=== PATIENT | female | born 1985 | race African-American/Black ===

== ENCOUNTER 2021-03-20 21:59 | Emergency (ER) | payer OTHER ==
[~2021-03-20] VITALS: Ht 170.2 cm; Wt 120.0 kg
[~2021-03-20 21:59] MED LIST: UNK ANTIBIOTIC
[2021-03-21] MEDS ORDERED: ONDANSETRON HCL 4MG/2ML INJ IV STA (03:22)
[2021-03-21] MEDS ORDERED: SODIUM CHLORIDE 0.9% 1,000 ML IV ONE (03:30)
[2021-03-21] MEDS ORDERED: LORAZEPAM 0.5MG TABLET PO ONE (03:30)
[2021-03-21 03:52] LABS: BASOPHILS % 0.6 % (0.0-2.0); EOSINOPHILS % 1.6 % (0.0-5.0); HEMATOCRIT. 30.5 % (36.0-48.0); LYMPHOCYTES % 16.4 % (20.0-50.0); MEAN CORPUSCULAR HEMOGLOBIN 27.6 pg (28.0-32.0); MEAN CORPUSCULAR VOLUME 84.1 fL (81.0-99.0); MEAN PLATELET VOLUME 9.4 fl (7.4-10.4); MONOCYTES % 6.2 % (2.0-8.0); NEUTROPHILS % 75.2 % (40.0-76.0); PLATELET 242 x1000/uL (130-400); RED BLOOD CELL COUNT 3.63 mill/uL (4.2-5.4); RED CELL DISTRIBUTION WIDTH 14.5 % (11.6-14.6)
[2021-03-21 03:54] LABS: CHLORIDE 107 mEq/L (98-107)
[2021-03-21 03:55] LABS: HCG SCREEN POSITIVE; INR 0.9; PROTHROMBIN TIME 10.2 sec (9.6-11.0)
[2021-03-21 04:21] LABS: CLARITY URINE CLOUDY (CLEAR); COLOR URINE DARK YELLOW (YELLOW); KETONES URINE 4+ (NEGATIVE); LEUKOCYTE ESTERASE URINE NEGATIVE (NEGATIVE); NITRITE URINE NEGATIVE (NEGATIVE); OCCULT BLOOD URINE NEGATIVE (NEGATIVE); PH URINE 5.5 (4.5-8.0); PROTEIN URINE TRACE (NEGATIVE); SPECIFIC GRAVITY URINE 1.027 (1.005-1.030)
[2021-03-21] MEDS ORDERED: CEPH500C2 MT (05:39)
[2021-03-21 05:45] VITALS: BP 120/60
== END 2021-03-21 05:50 | disposition home or self-care (01) ==
LOC: ER 21:59
DX: O21.8 Other vomiting complicating pregnancy (principal); Z3A.20 20 weeks gestation of pregnancy; F12.10 Cannabis abuse, uncomplicated
CPT/HCPCS: 36415; 80053; 81003; 83690; 84484; 84703; 85025; 85610; 96361; 96374; 99283; J2405; J7030

== ENCOUNTER 2021-04-07 09:55 | Inpatient (IN) | payer OTHER ==
[~2021-04-07] VITALS: Ht 172.7 cm; Wt 117.5 kg
[~2021-04-07 09:55] MED LIST changes: +CEPH500C2 MT
[2021-04-07 10:52] LABS: HEMATOCRIT. 33.7 % (36.0-48.0); HEMOGLOBIN. 11.1 g/dL (12.0-16.0); MEAN CORPUSCULAR HEMOGLOBIN 27.3 pg (28.0-32.0); MEAN CORPUSCULAR VOLUME 82.8 fL (81.0-99.0); MEAN PLATELET VOLUME 9.9 fl (7.4-10.4); PLATELET 292 x1000/uL (130-400); RED BLOOD CELL COUNT 4.07 mill/uL (4.2-5.4); RED CELL DISTRIBUTION WIDTH 15.1 % (11.6-14.6)
[2021-04-07 11:02] LABS: CHLORIDE 105 mEq/L (98-107)
[2021-04-07 11:25] LABS: B-HCG QUANTITATIVE 11505 mIU/mL (<3)
[2021-04-07 12:15] LABS: PLATELET ESTIMATE NORMAL
[2021-04-07 12:30] LABS: BG BASE EXCESS -1.3 mmol/L (-2.0-2.0); BG CARBOXYHEMOGLOBIN 0.3 % (0.5-1.5); BG DEOXYHEMOGLOBIN 3.9 % (0.0-5.0); BG FRACTION INSPIRED OXYGEN 28; BG HCO3 ACT 19.3 mmol/L (22.0-26.0); BG METHEMOGLOBIN 0.3 % (0.0-1.5); BG OXYGEN SATURATION 96.1 % (92.0-98.5); BG OXYHEMOGLOBIN 95.5 % (94.0-97.0); BG PCO2 21.9 mmHg (35.0-45.0); BG PH 7.563 (7.350-7.450); BG PO2 76.5 mmHg (75.0-100.0); BG SAMPLE SITE RIGHT RADIAL; BG TOTAL HEMOGLOBIN 11.6 g/dL (12.0-18.0); BG VENT MODE NASAL CANNULA
[2021-04-07] MEDS ORDERED: CEFTRIAXONE 1 G PREMIX 50 ML IV ONE (12:30)
[2021-04-07] MEDS ORDERED: AZITHROMYCIN 500MG/250ML 250 ML IV ONE (12:30)
[2021-04-07] MEDS: ONDANSETRON HCL 4MG/2ML INJ IV PRN ×2 (14:48→19:54)
[2021-04-07] MEDS ORDERED: CEFTRIAXONE 1,000 MG in DEXTROSE 5% WATER 50 ML IV SCH (15:30)
[2021-04-07] MEDS ORDERED: ACETAMINOPHEN 325MG TABLET PO PRN (15:30)
[2021-04-07 15:51] VITALS: BP 127/69
[2021-04-07 20:00] VITALS: BP 100/51
[2021-04-08] VITALS: BP 110/55
[2021-04-08 04:00] VITALS: BP 99/54
[2021-04-08 05:56] LABS: CHLORIDE 105 mEq/L (98-107)
[2021-04-08] MEDS: ONDANSETRON HCL 4MG/2ML INJ IV PRN ×3 (06:12→20:14)
[2021-04-08 06:23] LABS: HEMATOCRIT. 30.4 % (36.0-48.0); HEMOGLOBIN. 10.1 g/dL (12.0-16.0); MEAN CORPUSCULAR HEMOGLOBIN 27.4 pg (28.0-32.0); MEAN CORPUSCULAR VOLUME 82.4 fL (81.0-99.0); MEAN PLATELET VOLUME 9.7 fl (7.4-10.4); PLATELET 196 x1000/uL (130-400); RED BLOOD CELL COUNT 3.69 mill/uL (4.2-5.4); RED CELL DISTRIBUTION WIDTH 14.9 % (11.6-14.6)
[2021-04-08 08:00] VITALS: BP 100/57
[2021-04-08] MEDS ORDERED: POTASSIUM CHLORIDE 20MEQ TABLET SR PO SCH (09:00)
[2021-04-08] MEDS: DOCUSATE SODIUM 100MG CAPSULE PO PRN (09:53)
[2021-04-08] MEDS: CEFTRIAXONE 1,000 MG in DEXTROSE 5% WATER 50 ML IV SCH (09:54)
[2021-04-08 12:00] VITALS: BP 109/53
[2021-04-08 16:00] VITALS: BP 104/55
[2021-04-08 18:51] LABS: PLATELET ESTIMATE NORMAL
[2021-04-08 20:00] VITALS: BP 102/63
[2021-04-09] VITALS: BP 110/68
[2021-04-09 04:00] VITALS: BP 99/67
[2021-04-09 05:50] VITALS: BP 99/67
[2021-04-09 08:00] VITALS: BP 104/70
[2021-04-09] MEDS: CEFTRIAXONE 1,000 MG in DEXTROSE 5% WATER 50 ML IV SCH (09:20)
[2021-04-09] MEDS: DOCUSATE SODIUM 100MG CAPSULE PO PRN (09:20)
[2021-04-09 12:00] VITALS: BP 109/69
[2021-04-09 12:59] VITALS: BP 103/69
== END 2021-04-09 13:40 | disposition home or self-care (01) | DRG 566 ==
LOC: ER 09:55 → MICUSO 12:20 → 7WST 15:45
PROVIDERS: ADMIT Internal Medicine; ATTEND Internal Medicine
DX: O98.512 Other viral diseases complicating pregnancy, second trimester (principal); A41.89 Other specified sepsis; J12.82 Pneumonia due to coronavirus disease 2019; O98.812 Other maternal infectious and parasitic diseases complicating pregnancy, second trimester; O99.512 Diseases of the respiratory system complicating pregnancy, second trimester; U07.1 COVID-19; O99.012 Anemia complicating pregnancy, second trimester; O26.892 Other specified pregnancy related conditions, second trimester; R74.01 Elevation of levels of liver transaminase levels; Z3A.26 26 weeks gestation of pregnancy; Z79.899 Other long term (current) drug therapy
CPT/HCPCS: 36415; 36600; 71045; 76830; 76856; 80048; 80053; 82375; 82728; 82805; 82962; 83605; 83615; 84145; 84484; 84702; 85025; 86140; 93005; 99291; J0456; J0696; J2405; J7060; U0003; U0005

== ENCOUNTER 2021-08-15 23:06 | Inpatient (IN) | payer MEDICAID, OTHER ==
[~2021-08-15] VITALS: Ht 170.2 cm; Wt 119.8 kg
[2021-08-16] MEDS ORDERED: ONDANSETRON HCL 4MG/2ML INJ IV STA (02:23)
[2021-08-16] MEDS ORDERED: KETOROLAC 30MG/ML VIAL IV STA (02:23)
[2021-08-16] MEDS ORDERED: SODIUM CHLORIDE 0.9% 1,000 ML IV ONE (02:30)
[2021-08-16 02:50] LABS: BASOPHILS % 1.1 % (0.0-2.0); EOSINOPHILS % 2.3 % (0.0-5.0); HEMATOCRIT. 36.5 % (36.0-48.0); HEMOGLOBIN. 11.6 g/dL (12.0-16.0); LYMPHOCYTES % 20.9 % (20.0-50.0); MEAN CORPUSCULAR HEMOGLOBIN 24.9 pg (28.0-32.0); MEAN PLATELET VOLUME 9.3 fl (7.4-10.4); MONOCYTES % 11.3 % (2.0-8.0); NEUTROPHILS % 64.4 % (40.0-76.0); PLATELET 338 x1000/uL (130-400); RED BLOOD CELL COUNT 4.68 mill/uL (4.2-5.4); RED CELL DISTRIBUTION WIDTH 16.9 % (11.6-14.6)
[2021-08-16 02:58] LABS: CHLORIDE 107 mEq/L (98-107)
[2021-08-16 03:03] LABS: HCG SCREEN NEGATIVE
[2021-08-16] MEDS ORDERED: CEFTRIAXONE 1 G PREMIX 50 ML IV ONE (04:45)
[2021-08-16] MEDS: DEXT 5%/0.45% NACL 1000ML 1,000 ML IV SCH ×2 (09:00→21:52)
[2021-08-16] MEDS ORDERED: ONDANSETRON HCL 4MG/2ML INJ IV PRN (09:00)
[2021-08-16] MEDS ORDERED: KETOROLAC 30MG/ML VIAL IV PRN (09:00)
[2021-08-16] MEDS ORDERED: ACETAMINOPHEN 325MG TABLET PO PRN (09:00)
[2021-08-16 09:55] LABS: CLARITY URINE CLOUDY (CLEAR); COLOR URINE DARK YELLOW (YELLOW); KETONES URINE TRACE (NEGATIVE); LEUKOCYTE ESTERASE URINE TRACE (NEGATIVE); NITRITE URINE POSITIVE (NEGATIVE); OCCULT BLOOD URINE NEGATIVE (NEGATIVE); PH URINE 6.5 (4.5-8.0); PROTEIN URINE 1+ (NEGATIVE); SPECIFIC GRAVITY URINE 1.031 (1.005-1.030)
[2021-08-16] MEDS: AMLODIPINE 10MG TABLET PO SCH (10:14)
[2021-08-16] MEDS: PANTOPRAZOLE SODIUM 40 MG/VIAL IV SCH (10:14)
[2021-08-16] MEDS ORDERED: IBUP-2030 MT (11:14)
[2021-08-16] MEDS ORDERED: HYDR-4001 MT (11:14)
[2021-08-16 11:19] VITALS: BP 144/90
[2021-08-16 12:00] VITALS: BP 144/89
[2021-08-16 16:00] VITALS: BP 104/71
[2021-08-16] MEDS ORDERED: CEFTRIAXONE 1 G PREMIX 50 ML IV SCH (18:15)
[2021-08-16 20:00] VITALS: BP 130/83
[2021-08-16] MEDS ORDERED: MORPHINE SULFATE 2 MG/ML CPJ (NOT FOR IM USE) IV NR (20:30)
[2021-08-16 21:44] LABS: *BENZODIAZEPINES SCREEN URINE NEGATIVE (NEGATIVE); *COCAINE SCREEN URINE NEGATIVE (NEGATIVE)
[2021-08-16 21:45] LABS: CANNABINOID URINE SCREEN NEGATIVE (NEGATIVE); METHADONE URINE SCREEN NEGATIVE (NEGATIVE); OPIATES URINE SCREEN NEGATIVE (NEGATIVE); PHENCYCLIDINE URINE SCREEN NEGATIVE (NEGATIVE)
[2021-08-16 21:47] LABS: *BARBITURATES SCREEN URINE NEGATIVE (NEGATIVE)
[2021-08-16 21:48] LABS: *AMPHETAMINES SCREEN URINE NEGATIVE (NEGATIVE)
[2021-08-17] VITALS (7 sets, daily range): BP systolic 115–142; BP diastolic 76–90
[2021-08-17 07:00] LABS: CHLORIDE 107 mEq/L (98-107)
[2021-08-17 07:05] LABS: BASOPHILS % 1.2 % (0.0-2.0); EOSINOPHILS % 5.6 % (0.0-5.0); HEMATOCRIT. 35.9 % (36.0-48.0); HEMOGLOBIN. 11.7 g/dL (12.0-16.0); LYMPHOCYTES % 37.5 % (20.0-50.0); MEAN CORPUSCULAR HEMOGLOBIN 25.5 pg (28.0-32.0); MEAN CORPUSCULAR VOLUME 78.4 fL (81.0-99.0); MEAN PLATELET VOLUME 9.3 fl (7.4-10.4); MONOCYTES % 8.4 % (2.0-8.0); NEUTROPHILS % 47.3 % (40.0-76.0); PLATELET 294 x1000/uL (130-400); RED BLOOD CELL COUNT 4.58 mill/uL (4.2-5.4)
[2021-08-17] MEDS: AMLODIPINE 10MG TABLET PO SCH (08:18)
[2021-08-17] MEDS ORDERED: CEFTRIAXONE 1,000 MG in DEXTROSE 5% WATER 50 ML IV SCH (09:00)
[2021-08-17] MEDS: PANTOPRAZOLE SODIUM 40 MG/VIAL IV SCH (09:29)
[2021-08-17] MEDS: DEXT 5%/0.45% NACL 1000ML 1,000 ML IV SCH (19:01)
== END 2021-08-17 23:38 | disposition home or self-care (01) | DRG 561 ==
LOC: ER 23:06 → 5WST 08-16 05:42
PROVIDERS: ADMIT Internal Medicine; ATTEND Internal Medicine
DX: O99.63 Diseases of the digestive system complicating the puerperium (principal); K85.10 Biliary acute pancreatitis without necrosis or infection; E44.1 Mild protein-calorie malnutrition; J45.909 Unspecified asthma, uncomplicated; K80.20 Calculus of gallbladder without cholecystitis without obstruction; R74.8 Abnormal levels of other serum enzymes; O86.20 Urinary tract infection following delivery, unspecified; O99.53 Diseases of the respiratory system complicating the puerperium; O99.215 Obesity complicating the puerperium; O25.3 Malnutrition in the puerperium; O90.89 Other complications of the puerperium, not elsewhere classified; R74.01 Elevation of levels of liver transaminase levels; K82.8 Other specified diseases of gallbladder; N39.0 Urinary tract infection, site not specified; Z98.891 History of uterine scar from previous surgery; Z79.2 Long term (current) use of antibiotics; Z79.899 Other long term (current) drug therapy
CPT/HCPCS: 36415; 74176; 74181; 76705; 80053; 80305; 81003; 83605; 84703; 85025; 93005; 99285; C9113; J0696; J1885; J2270; J2405; J7030; J7060

== ENCOUNTER 2022-12-13 22:24 | Emergency (ER) | payer MEDICAID, OTHER ==
[~2022-12-13] VITALS: Ht 170.2 cm; Wt 117.0 kg
[2022-12-13 22:59] VITALS: TEMP 98.4; O2SAT 100
[2022-12-14 00:30] VITALS: BP 138/92; PULSE 64; RESP 18
[2022-12-14] MEDS ORDERED: IBUPROFEN 600MG TABLET PO ONE (00:30)
[2022-12-14] MEDS ORDERED: TETRACAINE 0.5% OPHTH DROPS 4ML BOTHEYE ONE (00:30)
[2022-12-14] MEDS ORDERED: ERYT1OIN6 EACHEYE (00:48)
== END 2022-12-14 01:23 | disposition home or self-care (01) ==
LOC: ER 22:24
DX: H57.89 Other specified disorders of eye and adnexa (principal); Z98.890 Other specified postprocedural states
CPT/HCPCS: 99283